=== PATIENT | male | born 1990 | race Caucasian/White ===

== ENCOUNTER 2020-09-14 23:03 | Emergency (ER) | payer MEDICAID ==
[~2020-09-14] VITALS: Ht 182.9 cm; Wt 114.0 kg
[2020-09-15] MEDS ORDERED: KETOROLAC 30MG/ML VIAL IM ONE
[2020-09-15] MEDS ORDERED: NAP5EC MT (02:48)
[2020-09-15 03:23] VITALS: BP 140/89
== END 2020-09-15 03:45 | disposition home or self-care (01) ==
LOC: ER 23:48
DX: S76.112A Strain of left quadriceps muscle, fascia and tendon, initial encounter (principal); M25.562 Pain in left knee; X58.XXXA Exposure to other specified factors, initial encounter; Y93.89 Activity, other specified; Y92.89 Other specified places as the place of occurrence of the external cause; Y99.8 Other external cause status
CPT/HCPCS: 73562; 76881; 96372; 99284; J1885; L1830